=== PATIENT | female | born 1985 | race Caucasian/White ===

== ENCOUNTER 2017-06-01 12:20 | Emergency (ER) | payer MEDICAID ==
[~2017-06-01] VITALS: Ht 170.2 cm; Wt 56.7 kg
[~2017-06-01 12:20] MED LIST: LEVOTAB
[2017-06-01 13:24] LABS: Urine WBC None Seen /hpf (0 - 5)
[2017-06-01 13:43] LABS: Urine Bacteria NONE SEEN /hpf (None Seen); Urine Blood Negative /uL (Negative); Urine Specific Gravity 1.007 (1.001-1.035)
[2017-06-01 13:48] LABS: Eosinophils # (auto) 0 uL; Eosinophils % (auto) 0.6 % (0.0-7.0); Monocytes # (auto) 0.3 uL
[2017-06-01 13:52] LABS: Basophils # (auto) 0 uL; Basophils % (auto) 0.9 % (0.0-2.0); Hematocrit 38.1 % (36.0-46.0); Hemoglobin 12.3 g/dL (12.2-16.2); Lymphocytes % (auto) 36.2 % (10.0-50.0); Mean Corpuscular Hemoglobin 25.7 pg (28.0-32.0); Mean Corpuscular Hgb Conc. 32.3 g/dL (32.0-36.0); Mean Corpuscular Volume 79.4 fL (80.0-100.0); Monocytes % (auto) 6.3 % (0.0-12.0); Neutrophils # (auto) 3.1 uL; Nucleated Red Blood Cells % 0.3 %; Platelet Count (auto) 238 10^3/uL (140-450); Red Cell Distribution Width 17.3 % (11.8-14.3); White Blood Cell 5.5 10^3/uL (4.4-10.8)
[2017-06-01 14:13] LABS: Albumin 3.8 g/dL (3.4-5.0); BUN/Creatinine Ratio 10.5; Bilirubin, Total 0.4 mg/dL (0.2-1.0); Calcium 9.1 mg/dL (8.5-10.1); Potassium 3.9 mmol/L (3.5-5.1); Total Protein 7.9 g/dL (6.4-8.2)
[2017-06-01] MEDS ORDERED: GADOPENTETATE DIMEGLUMINE (10MMOL/20 ML) VIAL IV ONE (14:38)
[2017-06-01 18:40] VITALS: BP 122/75
== END 2017-06-01 18:50 | disposition home or self-care (01) ==
LOC: ER 12:20
DX: R10.9 Unspecified abdominal pain (principal); Z88.6 Allergy status to analgesic agent; Z91.040 Latex allergy status
CPT/HCPCS: 36415; 73723; 80053; 81001; 81025; 85025; 99285; A9579

== ENCOUNTER → 2022-11-18 | Outpatient (CLI) | payer MEDICAID ==
[2022-11-18 15:41] LABS: Basophils # (auto) 0 10 ^3/uL (0-0.2); Eosinophils # (auto) 0 10 ^3/uL (0-0.8); Hemoglobin 11.8 g/dL (12.2-16.2); Lymphocytes # (auto) 1.6 10 ^3/uL (0.4-5.4); Neutrophils # (auto) 6.8 10 ^3/uL (1.6-8.6)
[2022-11-18 15:44] LABS: Basophils % (auto) 0.3 % (0.0-2.0); Eosinophils % (auto) 0.2 % (0.0-7.0); Hematocrit 35.6 % (36.0-46.0); Lymphocytes % (auto) 17.7 % (10.0-50.0); Mean Corpuscular Hemoglobin 26.7 pg (28.0-32.0); Monocytes # (auto) 0.5 10 ^3/uL (0-1.3); Monocytes % (auto) 6.1 % (0.0-12.0); Neutrophils % (auto) 75.7 % (37.0-80.0); Red Cell Distribution Width 14.6 % (11.8-14.3)
[2022-11-18 16:32] LABS: Amphetamine Screen, Urine Neg (NEGATIVE); Barbiturate Scree,Urine Neg (NEGATIVE); Benzodiazephine Screen, Urine Neg (NEGATIVE); Cocaine Screen, Urine Neg (NEGATIVE); Opiate Scree,Urine Neg (NEGATIVE); Phencyclidine Screen, Urine Neg (NEGATIVE)
[2022-11-18 16:33] LABS: Cannabinoid Screen, Urine Neg (NEGATIVE)
[2022-11-18 16:36] LABS: Alanine Aminotransferase 39 U/L (7-40); Albumin 4.4 g/dL (3.2-4.8); Alkaline Phosphatase 71 U/L (46-116); Anion Gap 7 (5-15); Aspartate Aminotransferase 31 U/L (13-40); BUN/Creatinine Ratio 14.3 (10.0-20.0); Bilirubin, Total 0.4 mg/dL (0.2-1.0); Blood Urea Nitrogen 8 mg/dL (9-23); Calcium 9.7 mg/dL (8.5-10.1); Carbon Dioxide 24 mmol/L (20-30); Chloride 104 mmol/L (98-107); Glucose 84 mg/dL (74-106); Potassium 3.8 mmol/L (3.5-5.1); Sodium 135 mmol/L (136-145); Total Protein 7.4 g/dL (5.7-8.2)
[2022-11-19 07:06] LABS: RPR Non Reactive (Non Reactive)
[2022-11-19 20:06] LABS: Chlamydia Trachomatis, NAA Negative (Negative); Neisseria gonorrhoeae, NAA Negative (Negative)
== END | disposition home or self-care (01) ==
LOC: LAB 14:54
PROVIDERS: ATTEND Obstetrics & Gynecology
DX: O10.912 Unspecified pre-existing hypertension complicating pregnancy, second trimester (principal); Z3A.00 Weeks of gestation of pregnancy not specified
CPT/HCPCS: 36415; 80053; 80307; 83036; 84702; 85025; 86592; 86703; 86762; 86850; 86900; 86901; 87086; 87340

== ENCOUNTER 2022-12-29 10:18 | Observation (INO) | payer MEDICAID ==
[~2022-12-29] VITALS: Ht 170.2 cm; Wt 68.0 kg
[2022-12-29] MEDS ORDERED: NIFEdipine 10 MG CAP PO ONE (11:30)
[2022-12-29] MEDS ORDERED: LACTATED RINGER'S 1,000 ML IV ONE (11:30)
[2022-12-29] MEDS ORDERED: TERBUTALINE SULFATE 1 MG/ML 1ML VIAL SC SCH (11:30)
[2022-12-29] MEDS ORDERED: PREN-96 PO (16:11)
[2022-12-29] MEDS ORDERED: NIF10C PO (16:12)
== END 2022-12-29 16:33 | disposition home or self-care (01) ==
LOC: LDRP 10:18
PROVIDERS: ADMIT Obstetrics & Gynecology; ATTEND Obstetrics & Gynecology
DX: O60.02 Preterm labor without delivery, second trimester (principal); O62.9 Abnormality of forces of labor, unspecified; Z3A.24 24 weeks gestation of pregnancy
CPT/HCPCS: 59025; 76815; 81002; 94760; 96360; 96361; G0378; J3105; 96372

== ENCOUNTER 2023-01-02 07:37 | Observation (INO) | payer MEDICAID ==
[~2023-01-02 07:37] MED LIST changes: +NIF10C PO; +PREN-96 PO
== END 2023-01-06 11:42 | disposition home or self-care (01) ==
LOC: LDRP 01-06 10:24 → UNDOADMOB 01-06 10:24 → LDRP 01-06 10:40
PROVIDERS: ADMIT Obstetrics & Gynecology; ATTEND Obstetrics & Gynecology
DX: O60.02 Preterm labor without delivery, second trimester (principal); O62.9 Abnormality of forces of labor, unspecified; Z3A.25 25 weeks gestation of pregnancy
CPT/HCPCS: 59025; 81002; 94760; G0378

== ENCOUNTER 2023-01-11 17:13 | Observation (INO) | payer MEDICAID | END 2023-01-11 19:27 | disposition home or self-care (01) | LOC: LDRP 17:13 | PROVIDERS: ADMIT Obstetrics & Gynecology; ATTEND Obstetrics & Gynecology | DX: O62.9 Abnormality of forces of labor, unspecified (principal); O60.02 Preterm labor without delivery, second trimester; O26.892 Other specified pregnancy related conditions, second trimester; R10.30 Lower abdominal pain, unspecified; Z91.040 Latex allergy status; Z87.891 Personal history of nicotine dependence; Z3A.26 26 weeks gestation of pregnancy | CPT/HCPCS: 59025; 76815; 81002; 94760; G0378 ==

== ENCOUNTER 2023-01-13 10:55 | Observation (INO) | payer MEDICAID | END 2023-01-13 12:14 | disposition home or self-care (01) | LOC: UNDOADMOB 10:55 → LDRP 10:55 → UNDODISOB 12:14 | PROVIDERS: ADMIT Obstetrics & Gynecology; ATTEND Obstetrics & Gynecology | DX: O60.02 Preterm labor without delivery, second trimester (principal); O62.9 Abnormality of forces of labor, unspecified; O26.892 Other specified pregnancy related conditions, second trimester; N89.8 Other specified noninflammatory disorders of vagina; Z87.891 Personal history of nicotine dependence; Z3A.26 26 weeks gestation of pregnancy | CPT/HCPCS: 59025; 81002; 94760; G0378 ==

== ENCOUNTER 2023-01-20 12:58 | Observation (INO) | payer MEDICAID ==
[2023-01-20] MEDS ORDERED: URSO300C2 PO (13:38)
== END 2023-01-20 13:48 | disposition home or self-care (01) ==
LOC: LDRP 12:58
PROVIDERS: ADMIT Obstetrics & Gynecology; ATTEND Obstetrics & Gynecology
DX: O60.02 Preterm labor without delivery, second trimester (principal); Z91.040 Latex allergy status; Z87.891 Personal history of nicotine dependence; Z3A.27 27 weeks gestation of pregnancy
CPT/HCPCS: 59025; 81002; 94760; G0378

== ENCOUNTER 2023-01-27 12:30 | Observation (INO) | payer MEDICAID ==
[~2023-01-27] VITALS: Ht 170.2 cm; Wt 59.0 kg
[~2023-01-27 12:30] MED LIST changes: +URSO300C2 PO
[2023-01-27] MEDS ORDERED: TERBUTALINE SULFATE 1 MG/ML 1ML VIAL SC SCH (13:15)
[2023-01-27] MEDS ORDERED: LACTATED RINGER'S 1,000 ML IV SCH (13:15)
== END 2023-01-27 15:04 | disposition home or self-care (01) ==
LOC: UNDOADMOB 12:30 → LDRP 12:30
PROVIDERS: ADMIT Obstetrics & Gynecology; ATTEND Obstetrics & Gynecology
DX: O60.02 Preterm labor without delivery, second trimester (principal); O26.642 Intrahepatic cholestasis of pregnancy, second trimester; K83.1 Obstruction of bile duct; Z87.891 Personal history of nicotine dependence; Z3A.28 28 weeks gestation of pregnancy
CPT/HCPCS: 59025; 81002; 94760; 96360; 96361; G0378

== ENCOUNTER 2023-02-03 13:13 | Observation (INO) | payer MEDICAID | END 2023-02-03 14:20 | disposition home or self-care (01) | LOC: UNDOADMOB 13:13 → LDRP 13:13 | PROVIDERS: ADMIT Obstetrics & Gynecology; ATTEND Obstetrics & Gynecology | DX: O60.03 Preterm labor without delivery, third trimester (principal); Z91.040 Latex allergy status; Z87.891 Personal history of nicotine dependence; Z3A.29 29 weeks gestation of pregnancy | CPT/HCPCS: 59025; 81002; 94760; G0378 ==

== ENCOUNTER 2023-02-10 14:19 | Observation (INO) | payer MEDICAID ==
[~2023-02-10] VITALS: Ht 170.2 cm; Wt 79.4 kg
[2023-02-10] MEDS ORDERED: TERBUTALINE SULFATE 1 MG/ML 1ML VIAL SC ONE (15:15)
== END 2023-02-10 15:59 | disposition home or self-care (01) ==
LOC: UNDOADMOB 14:19 → LDRP 14:19
PROVIDERS: ADMIT Obstetrics & Gynecology; ATTEND Obstetrics & Gynecology
DX: O60.03 Preterm labor without delivery, third trimester (principal); O26.643 Intrahepatic cholestasis of pregnancy, third trimester; K83.1 Obstruction of bile duct; Z3A.30 30 weeks gestation of pregnancy; Z87.891 Personal history of nicotine dependence
CPT/HCPCS: 59025; 81002; 94760; 96372; G0378; J3105

== ENCOUNTER 2023-02-17 14:15 | Observation (INO) | payer MEDICAID | END 2023-02-17 15:18 | disposition home or self-care (01) | LOC: UNDOADMOB 14:15 → LDRP 14:15 | PROVIDERS: ADMIT Obstetrics & Gynecology; ATTEND Obstetrics & Gynecology | DX: O60.03 Preterm labor without delivery, third trimester (principal); O26.643 Intrahepatic cholestasis of pregnancy, third trimester; K83.1 Obstruction of bile duct; Z91.040 Latex allergy status; Z87.891 Personal history of nicotine dependence; Z3A.31 31 weeks gestation of pregnancy | CPT/HCPCS: 59025; 81002; 94760; G0378 ==

== ENCOUNTER 2023-02-24 14:00 | Observation (INO) | payer MEDICAID ==
[~2023-02-24 14:00] MED LIST changes: -LEVOTAB
== END 2023-02-24 15:26 | disposition home or self-care (01) ==
LOC: UNDOADMOB 14:00 → LDRP 14:00 → UNDODISOB 15:26
PROVIDERS: ADMIT Obstetrics & Gynecology; ATTEND Obstetrics & Gynecology
DX: O60.03 Preterm labor without delivery, third trimester (principal); O26.643 Intrahepatic cholestasis of pregnancy, third trimester; K83.1 Obstruction of bile duct; Z91.040 Latex allergy status; Z87.891 Personal history of nicotine dependence; Z3A.32 32 weeks gestation of pregnancy
CPT/HCPCS: 59025; 76818; 81002; 94760; G0378

== ENCOUNTER 2023-02-26 09:16 | Observation (INO) | payer MEDICAID | END 2023-02-26 15:54 | disposition home or self-care (01) | LOC: UNDOADMOB 14:02 → LDRP 14:02 | PROVIDERS: ADMIT Obstetrics & Gynecology; ATTEND Obstetrics & Gynecology | DX: O60.03 Preterm labor without delivery, third trimester (principal); O26.643 Intrahepatic cholestasis of pregnancy, third trimester; K83.1 Obstruction of bile duct; O24.419 Gestational diabetes mellitus in pregnancy, unspecified control; Z3A.32 32 weeks gestation of pregnancy; Z91.040 Latex allergy status; Z87.891 Personal history of nicotine dependence | CPT/HCPCS: 59025; 76818; 81002; 94760; G0378 ==

== ENCOUNTER 2023-03-03 12:22 | Observation (INO) | payer MEDICAID | END 2023-03-03 14:04 | disposition home or self-care (01) | LOC: LDRP 12:22 → UNDOADMOB 12:22 → LDRP 12:35 → UNDODISOB 14:04 | PROVIDERS: ADMIT Nurse Practitioner Women's Health; ATTEND Nurse Practitioner Women's Health | DX: O60.03 Preterm labor without delivery, third trimester (principal); O26.643 Intrahepatic cholestasis of pregnancy, third trimester; K83.1 Obstruction of bile duct; Z3A.33 33 weeks gestation of pregnancy; Z91.040 Latex allergy status; Z87.891 Personal history of nicotine dependence | CPT/HCPCS: 59025; 76818; 81002; 94760; G0378 ==

== ENCOUNTER 2023-03-10 14:28 | Observation (INO) | payer MEDICAID ==
[~2023-03-10] VITALS: Ht 170.2 cm; Wt 80.7 kg
[2023-03-10 16:07] LABS: Basophils # (auto) 0 10 ^3/uL (0-0.2); Basophils % (auto) 0.3 % (0.0-2.0); Eosinophils # (auto) 0 10 ^3/uL (0-0.8); Eosinophils % (auto) 0.5 % (0.0-7.0); Hematocrit 34.4 % (36.0-46.0); Hemoglobin 11.2 g/dL (12.2-16.2); Lymphocytes # (auto) 1.4 10 ^3/uL (0.4-5.4); Mean Corpuscular Hemoglobin 26.1 pg (28.0-32.0); Mean Corpuscular Hgb Conc. 32.5 g/dL (32.0-36.0); Mean Corpuscular Volume 80.3 fL (80.0-100.0); Monocytes # (auto) 0.5 10 ^3/uL (0-1.3); Monocytes % (auto) 7.6 % (0.0-12.0); Neutrophils # (auto) 4.4 10 ^3/uL (1.6-8.6); Neutrophils % (auto) 69.6 % (37.0-80.0); Red Blood Cells 4.29 10^6/uL (4.0-5.20); White Blood Cell 6.3 10^3/uL (4.4-10.8)
[2023-03-10 16:09] LABS: Red Cell Distribution Width 30.6 % (11.8-14.3)
[2023-03-10 16:21] LABS: INR 0.93 (0.9-1.15); Partial Thromboplastin Time 29.5 SEC (24.5-34.5); Prothrombin Time 9.8 sec (9.3-11.8)
[2023-03-10 16:24] LABS: Alanine Aminotransferase 11 U/L (7-40); Albumin 3.5 g/dL (3.2-4.8); Alkaline Phosphatase 88 U/L (46-116); Anion Gap 9 (5-15); Aspartate Aminotransferase 11 U/L (13-40); Bilirubin, Total 0.4 mg/dL (0.2-1.0); Carbon Dioxide 23 mmol/L (20-30); Chloride 107 mmol/L (98-107); Glucose 96 mg/dL (74-106); Potassium 3.4 mmol/L (3.5-5.1); Sodium 139 mmol/L (136-145); Total Protein 5.9 g/dL (5.7-8.2); Uric Acid 4.3 mg/dL (3.1-7.8)
[2023-03-10 16:30] LABS: BUN/Creatinine Ratio 10.9 (10.0-20.0); Blood Urea Nitrogen < 5 mg/dL (9-23)
[2023-03-10] MEDS ORDERED: LACTATED RINGER'S 1,000 ML IV ONE (16:45)
[2023-03-10 18:22] LABS: Urine Epithelial Cast None Seen /hpf (<5)
[2023-03-10 18:37] LABS: Urine Bacteria FEW /hpf (None Seen); Urine Blood Negative /uL (Negative); Urine Clarity Clear (Clear); Urine Color Colorless (Yellow); Urine Protein, UAD Negative (Negative); Urine Specific Gravity 1.004 (1.001-1.035); Urine Urobilinogen Normal (Negative); Urine WBC 2 /hpf (0 - 5)
[2023-03-10 19:08] LABS: Protein, Urine < 6.0 mg/dL (0.0-11.9)
[2023-03-10 19:10] LABS: Creatinine, Urine 21.31 mg/dL (30.0-125.0); Urine Protein/Creatinine Ratio 0.28
== END 2023-03-10 18:05 | disposition home or self-care (01) ==
LOC: UNDOADMOB 14:28 → LDRP 14:28
PROVIDERS: ADMIT Obstetrics & Gynecology; ATTEND Obstetrics & Gynecology
DX: O26.643 Intrahepatic cholestasis of pregnancy, third trimester (principal); O60.03 Preterm labor without delivery, third trimester; K83.1 Obstruction of bile duct; Z3A.34 34 weeks gestation of pregnancy; Z91.040 Latex allergy status; Z87.891 Personal history of nicotine dependence
CPT/HCPCS: 36415; 59025; 76818; 80053; 81001; 81002; 82570; 84156; 84550; 85025; 85610; 85730; 94760; 96360; G0378

== ENCOUNTER 2023-03-13 14:08 | Observation (INO) | payer MEDICAID ==
[~2023-03-13] VITALS: Ht 170.2 cm; Wt 72.6 kg
[2023-03-13] MEDS ORDERED: TERBUTALINE SULFATE 1 MG/ML 1ML VIAL SC SCH (15:30)
[2023-03-13] MEDS ORDERED: TERBUTALINE SULFATE 1 MG/ML 1ML VIAL SC ONE (15:31)
== END 2023-03-13 16:11 | disposition home or self-care (01) ==
LOC: UNDOADMOB 14:08 → LDRP 14:08 → UNDODISOB 16:11
PROVIDERS: ADMIT Obstetrics & Gynecology; ATTEND Obstetrics & Gynecology
DX: O26.643 Intrahepatic cholestasis of pregnancy, third trimester (principal); K83.1 Obstruction of bile duct; O09.523 Supervision of elderly multigravida, third trimester; O60.03 Preterm labor without delivery, third trimester; Z3A.34 34 weeks gestation of pregnancy; Z87.891 Personal history of nicotine dependence
CPT/HCPCS: 59025; 76818; 81002; 94760; 96372; G0378; J3105

== ENCOUNTER 2023-03-17 12:14 | Observation (INO) | payer MEDICAID | END 2023-03-17 13:25 | disposition home or self-care (01) | LOC: UNDOADMOB 12:14 → LDRP 12:14 → UNDODISOB 13:25 | PROVIDERS: ADMIT Obstetrics & Gynecology; ATTEND Obstetrics & Gynecology | DX: O26.643 Intrahepatic cholestasis of pregnancy, third trimester (principal); O60.03 Preterm labor without delivery, third trimester; K83.1 Obstruction of bile duct; Z88.5 Allergy status to narcotic agent; Z87.891 Personal history of nicotine dependence; Z3A.35 35 weeks gestation of pregnancy | CPT/HCPCS: 59025; 76818; 81002; G0378 ==

== ENCOUNTER → 2023-03-17 | Outpatient (CLI) | payer MEDICAID ==
[2023-03-17 14:43] LABS: Basophils # (auto) 0 10 ^3/uL (0-0.2); Basophils % (auto) 0.5 % (0.0-2.0); Eosinophils # (auto) 0 10 ^3/uL (0-0.8); Eosinophils % (auto) 0.3 % (0.0-7.0); Hematocrit 36.8 % (36.0-46.0); Hemoglobin 12.1 g/dL (12.2-16.2); Lymphocytes # (auto) 1.4 10 ^3/uL (0.4-5.4); Lymphocytes % (auto) 16.4 % (10.0-50.0); Mean Corpuscular Hemoglobin 27.1 pg (28.0-32.0); Mean Corpuscular Hgb Conc. 32.9 g/dL (32.0-36.0); Mean Corpuscular Volume 82.3 fL (80.0-100.0); Monocytes # (auto) 0.6 10 ^3/uL (0-1.3); Monocytes % (auto) 6.6 % (0.0-12.0); Neutrophils # (auto) 6.5 10 ^3/uL (1.6-8.6); Neutrophils % (auto) 76.2 % (37.0-80.0); Red Blood Cells 4.48 10^6/uL (4.0-5.20); White Blood Cell 8.5 10^3/uL (4.4-10.8)
[2023-03-17 14:58] LABS: Red Cell Distribution Width 30.1 % (11.8-14.3)
[2023-03-17 16:44] LABS: Anisocytosis Moderate; Platelet Estimate Adequate; Tear Drop Cells FEW
[2023-03-18 08:07] LABS: RPR Non Reactive (Non Reactive)
[2023-03-18 23:07] LABS: Chlamydia Trachomatis, NAA Negative (Negative); Neisseria gonorrhoeae, NAA Negative (Negative)
== END | disposition home or self-care (01) ==
LOC: LAB 14:16
PROVIDERS: ATTEND Obstetrics & Gynecology
DX: Z34.80 Encounter for supervision of other normal pregnancy, unspecified trimester (principal); Z3A.00 Weeks of gestation of pregnancy not specified
CPT/HCPCS: 36415; 85025; 86592

== ENCOUNTER 2023-03-20 14:00 | Observation (INO) | payer MEDICAID | END 2023-03-20 16:06 | disposition home or self-care (01) | LOC: LDRP 14:00 → UNDOADMOB 14:00 → LDRP 14:14 → UNDODISOB 16:06 | PROVIDERS: ADMIT Obstetrics & Gynecology; ATTEND Obstetrics & Gynecology | DX: O26.643 Intrahepatic cholestasis of pregnancy, third trimester (principal); O60.03 Preterm labor without delivery, third trimester; K83.1 Obstruction of bile duct; Z88.5 Allergy status to narcotic agent; Z87.891 Personal history of nicotine dependence; Z3A.35 35 weeks gestation of pregnancy | CPT/HCPCS: 59025; 76818; 81002; 94760; G0378 ==

== ENCOUNTER 2023-03-24 13:03 | Observation (INO) | payer MEDICAID | END 2023-03-24 14:55 | disposition home or self-care (01) | LOC: UNDOADMOB 13:03 → LDRP 13:03 | PROVIDERS: ADMIT Obstetrics & Gynecology; ATTEND Obstetrics & Gynecology | DX: O60.03 Preterm labor without delivery, third trimester (principal); O26.643 Intrahepatic cholestasis of pregnancy, third trimester; O26.893 Other specified pregnancy related conditions, third trimester; K83.1 Obstruction of bile duct; R10.9 Unspecified abdominal pain; Z3A.36 36 weeks gestation of pregnancy; Z87.891 Personal history of nicotine dependence | CPT/HCPCS: 59025; 76818; 81002; 94760; G0378 ==

== ENCOUNTER 2023-03-27 13:06 | Inpatient (IN) | payer MEDICAID ==
[~2023-03-27] VITALS: Ht 170.2 cm; Wt 83.0 kg
[~2023-03-27 13:06] MED LIST changes: -NIF10C PO
[2023-03-27] MEDS ORDERED: BUTORPHANOL TARTRATE 2 MG/1 ML VIAL IV PRN ×2 (15:00)
[2023-03-27] MEDS ORDERED: PROMETHAZINE HCL 25 MG/ML 1ML IV PRN (15:00)
[2023-03-27 16:06] LABS: Basophils # (auto) 0 10 ^3/uL (0-0.2); Basophils % (auto) 0.4 % (0.0-2.0); Eosinophils # (auto) 0 10 ^3/uL (0-0.8); Eosinophils % (auto) 0.4 % (0.0-7.0); Hematocrit 38.7 % (36.0-46.0); Hemoglobin 12.9 g/dL (12.2-16.2); Lymphocytes # (auto) 1.7 10 ^3/uL (0.4-5.4); Lymphocytes % (auto) 19.7 % (10.0-50.0); Mean Corpuscular Hemoglobin 27.3 pg (28.0-32.0); Mean Corpuscular Hgb Conc. 33.2 g/dL (32.0-36.0); Mean Corpuscular Volume 82.1 fL (80.0-100.0); Monocytes # (auto) 0.6 10 ^3/uL (0-1.3); Monocytes % (auto) 6.6 % (0.0-12.0); Neutrophils # (auto) 6.2 10 ^3/uL (1.6-8.6); Neutrophils % (auto) 72.9 % (37.0-80.0); Nucleated Red Blood Cells % 0.1 %; Red Blood Cells 4.72 10^6/uL (4.0-5.20); White Blood Cell 8.5 10^3/uL (4.4-10.8)
[2023-03-27 16:12] LABS: Red Cell Distribution Width 29.4 % (11.8-14.3)
[2023-03-27 16:19] LABS: Alanine Aminotransferase 15 U/L (7-40); Albumin 3.9 g/dL (3.2-4.8); Alkaline Phosphatase 129 U/L (46-116); Anion Gap 8 (5-15); Aspartate Aminotransferase 24 U/L (13-40); BUN/Creatinine Ratio 16.4 (10.0-20.0); Blood Urea Nitrogen 9 mg/dL (9-23); Calcium 9.7 mg/dL (8.5-10.1); Carbon Dioxide 24 mmol/L (20-30); Chloride 105 mmol/L (98-107); Glucose 94 mg/dL (74-106); Sodium 137 mmol/L (136-145)
[2023-03-27 16:20] LABS: Bilirubin, Total 0.5 mg/dL (0.2-1.0); INR 0.92 (0.9-1.15); Partial Thromboplastin Time 30.6 SEC (24.5-34.5); Prothrombin Time 9.7 sec (9.3-11.8); Total Protein 6.1 g/dL (5.7-8.2)
[2023-03-27 16:25] LABS: Anisocytosis Marked; Platelet Estimate Adequate
[2023-03-27 16:29] LABS: Urine Bacteria FEW /hpf (None Seen); Urine Blood Negative /uL (Negative); Urine Clarity HAZY (Clear); Urine Color Colorless (Yellow); Urine Protein, UAD Negative (Negative); Urine Specific Gravity 1.009 (1.001-1.035); Urine Urobilinogen Normal (Negative); Urine WBC 4 /hpf (0 - 5)
[2023-03-27 16:40] LABS: Amphetamine Screen, Urine Neg (NEGATIVE); Barbiturate Scree,Urine Neg (NEGATIVE); Benzodiazephine Screen, Urine Neg (NEGATIVE); Cannabinoid Screen, Urine Neg (NEGATIVE); Cocaine Screen, Urine Neg (NEGATIVE); Opiate Scree,Urine Neg (NEGATIVE); Phencyclidine Screen, Urine Neg (NEGATIVE)
[2023-03-27] MEDS: miSOPROStol 50 MCG per PRE-CUT 1/2 TAB PO PRN (16:56)
[2023-03-27] MEDS: LACTATED RINGER'S 1,000 ML IV SCH (16:57)
[2023-03-27] MEDS: URSODIOL 300 MG CAP PO SCH (21:15)
[2023-03-28 08:06] LABS: RPR Non Reactive (Non Reactive)
[2023-03-28] MEDS ORDERED: FAMOTIDINE (10MG/ML) 2ML VL IV PRN (09:30)
[2023-03-28] MEDS: fentaNYL CITRATE 100 MCG/2 ML VL IV ONE ×2 (09:32→23:53)
[2023-03-28] MEDS: ROPIVACAINE HCL 200 ML ONE (09:34)
[2023-03-28] MEDS ORDERED: TERBUTALINE SULFATE 1 MG/ML 1ML VIAL SC PRN (09:45)
[2023-03-28] MEDS ORDERED: LACT. RINGERS/OXYTOCIN 20UNITS 1,000 ML IV SCH (09:45)
[2023-03-28] MEDS: diphenhdrAMINE HCL 50 MG/1 ML VL IV PRN (10:02)
[2023-03-28] MEDS: LACTATED RINGER'S 1,000 ML IV ONE (13:27)
[2023-03-28] MEDS: ACETAMINOPHEN 325 MG TAB PO STA (15:55)
[2023-03-28] MEDS: PENICILLIN G POT 5MIL/D5 50ML 50 ML IV ONE (16:39)
[2023-03-28] MEDS: PENICILLIN G POTASSIUM 2,500,000 UNITS in D5W 5% 50 ML IV SCH (20:29)
[2023-03-28] MEDS: LIDOCAINE HCL 2 %PF INJ 10ML AMP IJ ONE (23:50)
[2023-03-29] MEDS: miSOPROStol 100 mcg TAB ONE ×2 (02:51→03:13)
[2023-03-29] MEDS: METHYLERGONOVINE MALEATE 0.2 MG/ML AMP IM ONE (03:13)
[2023-03-29] MEDS: DIPHENOXYLATE W/ATROPINE 2.5 MG TAB ONE (03:21)
[2023-03-29] MEDS: ONDANSETRON HCL 4 MG/2 ML VIAL ONE (03:21)
[2023-03-29] MEDS: CARBOPROST TROMETHAMINE 250 MCG/1ML VIAL IM ONE ×2 (03:22→04:03)
[2023-03-29] MEDS ORDERED: CARBOPROST TROMETHAMINE 250 MCG/1ML VIAL IM PRN (03:30)
[2023-03-29] MEDS: DERMOPLAST 60ML BOTTLE TOP PRN (03:38)
[2023-03-29] MEDS: WITCH HAZEL-GLYCERIN PAD TOP PRN (03:38)
[2023-03-29] MEDS: PHISODERM TOP SOLN 240ML BTL TOP PRN (03:38)
[2023-03-29] MEDS: LACT. RINGERS/OXYTOCIN 20UNITS 500 ML IV ONE ×4 (03:45→10:15)
[2023-03-29] MEDS: miSOPROStol 100 mcg TAB PR PRN (03:57)
[2023-03-29] MEDS: miSOPROStol 100 mcg TAB SL PRN (03:58)
[2023-03-29] MEDS: DIPHENOXYLATE W/ATROPINE 2.5 MG TAB PO SCH (03:59)
[2023-03-29] MEDS: ONDANSETRON HCL 4 MG/2 ML VIAL IV PRN (04:00)
[2023-03-29] MEDS: LIDOCAINE 2%HCL (LOCAL ANESTH.) INJ 20ML MDV IJ PRN (04:29)
[2023-03-29] MEDS ORDERED: ceFAZolin 1GM/50ML 50 ML IV SCH (06:00)
[2023-03-29 07:20] VITALS: BP 127/66; PULSE 77; RESP 17; TEMP 98.3; O2SAT 96
[2023-03-29 07:25] VITALS: PULSE 77; RESP 17; O2SAT 96
[2023-03-29] MEDS: ePHEDrine SULFATE 50 MG/ML AMP IV ONE (07:45)
[2023-03-29] MEDS: NALOXONE HCL 0.4 MG/ML VIAL IV ONE (07:45)
[2023-03-29] MEDS: IBUPROFEN 600 MG TAB PO PRN (07:55)
[2023-03-29] MEDS: ceFAZolin 1GM/50ML 50 ML IV SCH ×2 (08:12→16:08)
[2023-03-29] MEDS: ROPIVACAINE HCL 200 ML ONE (09:00)
[2023-03-29 11:00] VITALS: BP 120/63; PULSE 68; RESP 18; TEMP 98; O2SAT 98
[2023-03-29] MEDS: ACETAMINOPHEN 325 MG TAB PO PRN (11:24)
[2023-03-29 15:00] VITALS: BP 118/66; PULSE 74; RESP 18; TEMP 98; O2SAT 97
[2023-03-29] MEDS: URSODIOL 300 MG CAP PO SCH (17:56)
[2023-03-29 18:55] VITALS: BP 117/69; PULSE 85; RESP 16; TEMP 98.1; O2SAT 97
[2023-03-29] MEDS: CEPHALEXIN 250 MG CAP PO SCH (22:53)
[2023-03-29 23:00] VITALS: BP 103/57; PULSE 60; RESP 18; TEMP 97.4; O2SAT 96
[2023-03-30] MEDS ORDERED: CEPHALEXIN 250 MG CAP PO SCH
[2023-03-30 03:00] VITALS: BP 110/64; PULSE 64; RESP 18; TEMP 98; O2SAT 96
[2023-03-30 07:00] VITALS: PULSE 77
[2023-03-30 07:12] VITALS: BP 98/59; PULSE 67; RESP 15; TEMP 97.5; O2SAT 97
[2023-03-30 07:39] LABS: Basophils # (auto) 0 10 ^3/uL (0-0.2); Basophils % (auto) 0.3 % (0.0-2.0); Eosinophils # (auto) 0.1 10 ^3/uL (0-0.8); Hematocrit 27.4 % (36.0-46.0); Hemoglobin 9.1 g/dL (12.2-16.2); Lymphocytes # (auto) 1.9 10 ^3/uL (0.4-5.4); Lymphocytes % (auto) 17.4 % (10.0-50.0); Mean Corpuscular Hemoglobin 27.8 pg (28.0-32.0); Mean Corpuscular Hgb Conc. 33.3 g/dL (32.0-36.0); Mean Corpuscular Volume 83.6 fL (80.0-100.0); Monocytes # (auto) 0.8 10 ^3/uL (0-1.3); Monocytes % (auto) 7.2 % (0.0-12.0); Neutrophils # (auto) 8.1 10 ^3/uL (1.6-8.6); Neutrophils % (auto) 74.1 % (37.0-80.0); Nucleated Red Blood Cells % 0.1 %; Red Blood Cells 3.27 10^6/uL (4.0-5.20); White Blood Cell 10.9 10^3/uL (4.4-10.8)
[2023-03-30 08:03] LABS: Red Cell Distribution Width 29.5 % (11.8-14.3)
[2023-03-30 09:21] LABS: Platelet Estimate Decreased
[2023-03-30 09:22] LABS: Anisocytosis Marked
[2023-03-30 11:00] VITALS: BP 107/68; PULSE 77; RESP 16; TEMP 97.9; O2SAT 97
[2023-03-31 19:06] LABS: Treponema pallidum Ab (FTA-Ab) Non Reactive (Non Reactive)
== END 2023-03-30 14:05 | disposition home or self-care (01) | DRG 560 ==
LOC: UNDOADMOB 13:06 → LDRP 13:06 → OBSVTOIN 14:56 → LDRP 14:57
PROVIDERS: ADMIT Obstetrics & Gynecology; ATTEND Obstetrics & Gynecology
PROC: 10E0XZZ Delivery of Products of Conception, External Approach (ICD-10-PCS; principal; 2023-03-29)
PROC: 0KQM0ZZ Repair Perineum Muscle, Open Approach (ICD-10-PCS; 2023-03-29)
PROC: 3E0R3BZ Introduction of Anesthetic Agent into Spinal Canal, Percutaneous Approach (ICD-10-PCS; 2023-03-29)
PROC: 00HU33Z Insertion of Infusion Device into Spinal Canal, Percutaneous Approach (ICD-10-PCS; 2023-03-29)
DX: O26.643 Intrahepatic cholestasis of pregnancy, third trimester (principal); Z37.0 Single live birth; K76.89 Other specified diseases of liver; L29.9 Pruritus, unspecified; O26.893 Other specified pregnancy related conditions, third trimester; O70.1 Second degree perineal laceration during delivery; Z3A.37 37 weeks gestation of pregnancy; Z88.5 Allergy status to narcotic agent; Z91.040 Latex allergy status
CPT/HCPCS: 36415; 59025; 59409; 62282; 76818; 80053; 80307; 81001; 81002; 85025; 85610; 85730; 86592; 86850; 86900; 86901; 94760; 96360; 96361; 96365; 96366; 96372; 96374; G0378; J2405; J2540; J2590; J3490; J7060